=== PATIENT | female | born 1950 | race Caucasian/White ===

== ENCOUNTER 2020-10-05 15:24 | Inpatient (IN) ==
--- NOTE | 2020-10-05 15:27 | Emergency Department Note ---
Impression & Plan Closed fracture of left hip, Fall ED Provider Note NAME: BETHANY PAIZ AGE: 70 SEX: F : 1950 ARRIVES VIA: Ambulance INFORMANT: Patient, ED PROVIDER(S): Donte Padron MD Chief Complaint: Fall, hip pain HPI: Patient does present with fall and hip pain. The patient states that she was walking with her son. The Patient is currently visiting from [place]. The patient denies any fevers, chills, chest pains or shortness of breath. Patient denies known Covid contacts and no medical history does not take any medications. The patient did have a slip trip and fell to her left side. The patient did have immediate pain and was unable to ambulate. The patient was brought in by ambulance. No medications given prior to arrival. The patient does complain of pain with movement or with palpation. The patient does describe it as sharp. It is located within the left groin and left hip. The patient denies any headache. The patient did not strike her head or neck. The patient had no LOC. The patient does not complain of any head, neck, chest, abdomen, back, upper extremity or right lower extremity pain. She does not take any blood thinning medications. ROS: See HPI for pertinent positives and negatives. A total of 10 systems were reviewed and otherwise negative. Past medical history: See below Surgical history: See below Social history: See below Physical Exam: GENERAL: Wearing glasses and a mask, mildly uncomfortable in appearance. EYE EXAM: Normal conjunctiva. PERRL, no anisocoria and EOM's grossly intact w/o pain. NECK: Supple, no nuchal rigidity, no adenopathy, non-tender. No signs of meningismus. No midline C-spine TTP. Chest: No TTP, crepitus or flail chest. LUNGS: Clear to auscultation. Normal chest wall mechanics. HEART: NSR, no MRG. ABDOMEN: Abdomen soft, non-tender, normo-active bowel sounds, no masses, no rebound or guarding. BACK: No CVA TTP. SKIN: No rashes and no bruising. UPPER EXTREMITIES: Upper extremities are grossly normal. No TTP or obvious deformity. LOWER EXTREMITIES: Left lower extremity held in slight flexion, pain with extension, pain over left hip and groin area, good DP pulse, neurovascular intact distally, compartments are soft. NEURO EXAM: A&O x3, cranial nerves II-XII grossly intact, normal speech. Moves all 4 extremities without issue with exception of left lower extremity secondary to pain. Differential diagnoses: Fracture, subluxation, dislocation, contusion, ligamentous injury, neurovascular, compartment syndrome, rhabdomyolysis, as well as other pathologies. Course: Patient was seen and evaluated the bedside. Full history physical exam was performed. 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 No prior EKGs for comparison. 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 COMPARISON: None TECHNIQUE: Portable AP view of the chest FINDINGS: Cardiomediastinal and hilar silhouettes are within normal limits. No pneumothorax, pleural effusion, airspace consolidation or overt pulmonary edema. Bones of the chest appear grossly intact. IMPRESSION: No acute process. ACT 112: Negative or not required by law. The above report was generated using voice recognition software. It may contain grammatical, syntax or spelling errors. Electronically signed by: Minh Stoddard M.D. 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 There is mild cortical irregularity with linear lucency involving the neck of the left femur. No displacement or angulation. No dislocation or avascular necrosis. IMPRESSION: Acute nondisplaced transcervical fracture of the left femur. ACT 112: Negative or not required by law. The above report was generated using voice recognition software. It may contain grammatical, syntax or spelling errors. Electronically signed by: Minh Stoddard M.D. 10/05/2020 4:51 PM Dictated: 10/05/201648 Transcribed: 10/05/201648 Cardiac monitoring: An order was placed for continuous cardiac monitoring. The monitor shows a rate of 86 with sinus rhythm. MDM: Patient did present with concern for fall and hip pain. Blood work is obtained along with pain medication as well as a pelvis and hip x-ray. Patient does have an impacted left femoral neck fracture. Nondisplaced. I did convey these findings to the patient the patient's family were at the bedside. I did speak with the on-call orthopedist Dr. Ashlie MD. He stated the patient would require surgical pinning. I did ask the patient about her last p.o. status she last ate around 1 or 2 PM. Unavailable to have procedure this evening but it is a closed injury. I did speak the on-call hospitalist Dr. Estefania paniagua MD. Patient was admitted to the medicine service with an orthopedic consult. Patient's blood work was fairly unremarkable with normal kidney function. Urinalysis does not show any evidence of infection. Rapid Covid negative. Past Med/Surg History Medical History Bulging disc Surgical History No pertinent past surgical history Social History (Updated 10/05/20 @ 15:44 by Donte Padron MD) Smoking Status: Never smoker Hx Alcohol Use: No Hx Substance Use: No Feels Safe at Home: Yes Allergies Allergies Allergy/AdvReac Type Severity Reaction Status Date / Time No Known Allergies Allergy Verified 10/05/20 17:18 Home Meds Home Medications Medication Instructions Recorded Confirmed No Known Home Medications 10/05/20 10/05/20 Results & Data (ED) Vital Signs Vital Signs - 24 hr 10/05/20 15:51 10/05/20 16:14 10/05/20 17:06 Temperature 36.9 C Temperature Source Oral Pulse Rate 99 H Pulse Rate [Apical] 86 Respiratory Rate 20 18 Blood Pressure 181/91 H Blood Pressure [Left Arm] 135/93 Blood Pressure Mean 121 Blood Pressure Mean [Left Arm] 107 Pulse Oximetry 99 99 97 Oxygen Delivery Method Room Air Room Air Room Air Sepsis Recent Fever Within 48 Hours No Sepsis New/Unexplained Change in Mental Status No Sepsis Action Taken by Nursing No Action Required Home Medications Current Medication List: was personally reviewed by me Additional Comments: No current at home medications. Laboratory Data Result diagrams: 10/05/20 16:12 10/05/20 16:12 Lab Results 10/05/20 10/05/20 10/05/20 Range/Units 16:12 16:12 16:12 WBC 6.33 (4.8-10.8) K/uL RBC 5.49 H (4.2-5.4) M/uL Hgb 15.3 (12.0-16.0) g/dL Hct 46.2 (37-47) % MCV 84.2 (80-100) fL MCH 27.9 (25-34) pg MCHC 33.1 (32-36) g/dL RDW Std Deviation 39.7 (36.4-46.3) fL RDW Coeff of Magali 13.0 (11.5-14.5) % Plt Count 160 (130-400) K/uL MPV 11.9 H (7.4-10.4) fL Immature Gran % (Auto) 0.3 % Neut % (Auto) 70.3 % Lymph % (Auto) 23.5 % [place] % (Auto) 5.2 % Eos % (Auto) 0.5 % Baso % (Auto) 0.2 % Neut # (Auto) 4.45 (1.4-6.5) K/uL Lymph # (Auto) 1.49 (1.2-3.4) K/uL [place] # (Auto) 0.33 (0.11-0.59) K/uL Eos # (Auto) 0.03 (0-0.5) K/uL Baso # (Auto) 0.01 (0-0.2) K/uL Immature Gran # (Auto) 0.02 (0.00-0.02) K/uL PT 10.5 (9.0-12.0) Seconds INR 1.0 (0.9-1.1) APTT 28.4 (21.0-31.0) Seconds PTT Ratio 1.0 Sodium 142 (136-145) mmol/L Potassium 3.4 L (3.5-5.1) mmol/L Chloride 106 (98-107) mmol/L Carbon Dioxide 30 (21-32) mmol/L Anion Gap 6.0 (3-11) BUN 18 (7-18) mg/dl Creatinine 0.67 (0.6-1.2) mg/dl Est Cr Clr Drug Dosing 72.3 ml/min Est GFR ( Amer) 104.7 Est GFR (Non-Af Amer) 90.3 BUN/Creatinine Ratio 27.5 H (10-20) Glucose 105 H (70-99) mg/dl Calcium 8.9 (8.5-10.1) mg/dl Urine Color Urine Appearance (Clear) Urine pH (4.5-7.5) Ur Specific [place] (1.000-1.030) Urine Protein (Negative) Urine Glucose (UA) (Negative) Urine Ketones (Negative) Urine Blood (Negative) Urine Nitrite (Negative) Urine Bilirubin (Negative) Urine Urobilinogen (Negative) Ur Leukocyte Esterase (Negative) Urine WBC (Auto) (0-5) /hpf Urine RBC (Auto) (0-4) /hpf U Hyaline Cast (Auto) (0-5) /lpf U Epithel Cells (Auto) (0-5) /lpf Urine Bacteria (Auto) (Negative) Blood Type Antibody Screen 10/05/20 10/05/20 10/05/20 Range/Units 16:30 16:58 17:29 WBC (4.8-10.8) K/uL RBC (4.2-5.4) M/uL Hgb (12.0-16.0) g/dL Hct (37-47) % MCV (80-100) fL MCH (25-34) pg MCHC (32-36) g/dL RDW Std Deviation (36.4-46.3) fL RDW Coeff of Magali (11.5-14.5) % Plt Count (130-400) K/uL MPV (7.4-10.4) fL Immature Gran % (Auto) % Neut % (Auto) % Lymph % (Auto) % [place] % (Auto) % Eos % (Auto) % Baso % (Auto) % Neut # (Auto) (1.4-6.5) K/uL Lymph # (Auto) (1.2-3.4) K/uL [place] # (Auto) (0.11-0.59) K/uL Eos # (Auto) (0-0.5) K/uL Baso # (Auto) (0-0.2) K/uL Immature Gran # (Auto) (0.00-0.02) K/uL PT (9.0-12.0) Seconds INR (0.9-1.1) APTT (21.0-31.0) Seconds PTT Ratio Sodium (136-145) mmol/L Potassium (3.5-5.1) mmol/L Chloride (98-107) mmol/L Carbon Dioxide (21-32) mmol/L Anion Gap (3-11) BUN (7-18) mg/dl Creatinine (0.6-1.2) mg/dl Est Cr Clr Drug Dosing ml/min Est GFR ( Amer) Est GFR (Non-Af Amer) BUN/Creatinine Ratio (10-20) Glucose (70-99) mg/dl Calcium (8.5-10.1) mg/dl Urine Color Yellow Urine Appearance Clear (Clear) Urine pH 8.0 H (4.5-7.5) Ur Specific [place] 1.008 (1.000-1.030) Urine Protein Negative (Negative) Urine Glucose (UA) Negative (Negative) Urine Ketones Negative (Negative) Urine Blood Negative (Negative) Urine Nitrite Negative (Negative) Urine Bilirubin Negative (Negative) Urine Urobilinogen Negative (Negative) Ur Leukocyte Esterase Trace H (Negative) Urine WBC (Auto) 1-5 (0-5) /hpf Urine RBC (Auto) 0-4 (0-4) /hpf U Hyaline Cast (Auto) 0 (0-5) /lpf U Epithel Cells (Auto) 0-5 (0-5) /lpf Urine Bacteria (Auto) Negative (Negative) Blood Type Cancelled A Positive Antibody Screen Cancelled NEGATIVE Administered Medications Morphine Sulfate (Morphine Sulfate 2 Mg/Ml Carp) 2 mg IV Q1H PRN PRN Reason: Moderate Pain (Rating 3,4,5,6) Stop: 10/19/20 15:40 Last Admin: 10/05/20 16:13 Dose: 2 mg Documented by: [id number] Discharge Plan Visit Data Chief Complaint: Fall Stated Complaint: FALL, L HIP & GROIN PAIN ED Provider: Donte Padron Discharge Problem: Closed fracture of left hip, Fall Forms Stand Alone Forms: [employer] Prescriptions Prescriptions: No Action No Known Home Medications RF: 0 Discharge Problem: Closed fracture of left hip Qualifiers: Encounter type: initial encounter Qualified Code(s): S72.002A - Fracture of unspecified part of neck of left femur, initial encounter for closed fracture Fall Qualifiers: Encounter type: initial encounter Qualified Code(s): W19.XXXA - Unspecified fall, initial encounter
[2020-10-05] MEDS ORDERED: MoRPHine SULFATE 2 MG/ML CARP IV PRN (15:41)
[2020-10-05 16:30] LABS: Basophils # (auto) 0.01 K/uL (0-0.2); Basophils % (auto) 0.2 %; Eosinophils # (auto) 0.03 K/uL (0-0.5); Eosinophils % (auto) 0.5 %; Hematocrit (blood only) 46.2 % (37-47); Hemoglobin 15.3 g/dL (12.0-16.0); Immature Granulocytes # (auto) 0.02 K/uL (0.00-0.02); Immature Granulocytes % (auto) 0.3 %; Lymphocytes # (auto) 1.49 K/uL (1.2-3.4); Lymphocytes % (auto) 23.5 %; Mean Corpuscular Hemoglobin 27.9 pg (25-34); Mean Corpuscular Hgb Conc 33.1 g/dL (32-36); Mean Corpuscular Volume 84.2 fL (80-100); Mean Platelet Volume 11.9 fL (7.4-10.4); Monocytes # (auto) 0.33 K/uL (0.11-0.59); Monocytes % (auto) 5.2 %; Neutrophils # (auto) 4.45 K/uL (1.4-6.5); Neutrophils % (auto) 70.3 %; Platelet Count 160 K/uL (130-400); RDW Standard Deviation 39.7 fL (36.4-46.3); Red Blood Count 5.49 M/uL (4.2-5.4); White Blood Count 6.33 K/uL (4.8-10.8)
[2020-10-05 16:45] LABS: BUN Creatinine Ratio 27.5 (10-20); Calcium 8.9 mg/dl (8.5-10.1); Creatinine Clr Calc Pharmacy 72.3 ml/min; Est GFR (African American) 104.7; Est GFR (Non-African American) 90.3; Partial Thromboplastin Time 28.4 Seconds (21.0-31.0); Potassium 3.4 mmol/L (3.5-5.1); Prothrombin Time 10.5 Seconds (9.0-12.0)
[2020-10-05] MEDS ORDERED: MoRPHine SULFATE 4 MG/ML 1 ML CARP\\VIAL IV PRN (16:52)
--- NOTE | 2020-10-05 16:53 | XRay Report ---
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 There is mild cortical irregularity with linear lucency involving the neck of the left femur. No displacement or angulation. No dislocation or avasc ular necrosis. IMPRESSION: Acute nondisplaced transcervical fracture of the left femur. ACT 112: Negative or not required by law. The above report was generated using voice recognition software. It may contain grammatical, syntax o r spelling errors. Electronically signed by: Minh Stoddard M.D. 10/05/2020 4:51 PM
[2020-10-05 17:09] LABS: Appearance Urine Clear (Clear); Bacteria Urine Automated Negative (Negative); Bilirubin Urine Negative (Negative); Blood Urine Negative (Negative); Cast Urine Automated 0 /lpf (0-5); Color Urine Yellow; Epithelial Cell Urine Auto 0-5 /lpf (0-5); Glucose Urine UA Negative (Negative); Ketones Urine Negative (Negative); Leukocyte Esterase Urine Trace (Negative); Nitrite Urine Negative (Negative); Protein Urine Negative (Negative); RBC Urine Automated 0-4 /hpf (0-4); Specific Gravity Urine 1.008 (1.000-1.030); Urobilinogen Urine Negative (Negative)
--- NOTE | 2020-10-05 17:30 | XRay Report ---
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 COMPARISON: None TECHNIQUE: Portable AP view of the chest FINDINGS: Cardiomediastinal and hilar silhouettes are within normal limits. No pneumothorax, pleural effusion, airspace consolidation or overt pulmonary edema. Bones of the chest appear grossly intact. IMPRESSION: No acute process. ACT 112: Negative or not required by law. The above report was generated using voice recognition software. It may contain grammatical, syntax o r spelling errors. Electronically signed by: Minh Stoddard M.D. 10/05/2020 5:29 PM
--- NOTE | 2020-10-05 18:55 | History & Physical Report ---
Date of Service October 05, 2020 Assessment & Plan (1) Closed fracture of left hip: Admit geriatric hip protocol to med surg On Xray - Acute nondisplaced transcervical fracture of the left femur. Dr. Dailey from orthopedics consulted NPO at midnight for intervention in the morning NSS @ 100 ml/hr Patient is overall fairly comfortable, has not required much pain medication - will give morphine 2 mg q2h Ms. Bhagat does not have any cardiac history except for the unknown arrhythmia she was told she had in the past for which she has not required any treatment. Her CXR was clear. EKG with SR with PVCs. Hypokalemia replaced. Repeat labs am. Barring any changes on labs in the morning requiring intervention patient is optimized for surgery. RCRI is 3.9% (2) Fall: Mechanical (3) PVC (premature ventricular contraction): Patient reports history of arrhythmia though she does not know what type. She was told by her doctor she did not need to take medicine for it and that it was not a problem. On the monitor in the ED she did have intermittent PVCs. She is not having any symptoms (4) Hypokalemia: Potassium 3.4 - will replace with 40 mEq (5) DVT prophylaxis: SCDs History of Present Illness Primary Care Provider: NO PCP Ms. Bhagat presents today with a hip fracture after tripping on the sidewalk while accompanied with her son. She has been visiting from [place] since March and has been unable to travel home due to COVID restrictions. She did not hit her head when she fell or lose consciousness. Her pain is well controlled at present and she only required 2 mg of morphine in the ED. 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 Allergies Allergy/AdvReac Type Severity Reaction Status Date / Time No Known Allergies Allergy Verified 10/05/20 17:18 Home Medications Medication Instructions Recorded Confirmed Type No Known Home Medications 10/05/20 10/05/20 History Past Med/Surg History Medical History Bulging disc Surgical History No pertinent past surgical history Social History Smoking Status: Never smoker Hx Alcohol Use: Yes Alcohol type: wine Hx Substance Use: No Preferred Language: Portuguese Communication Ability: Effective Billiard Table Repairer Required: No Beliefs That Will Affect Care: None marital status: Single Current Living Situation: Family Other Information That Helps Us Care for You: No Feels Safe at Home: Yes Safety Concerns: Feels Safe At This Time Assistive Devices: Walker Review of Systems Constitutional: no fever, no chills and no body aches Respiratory: no cough and no dyspnea Cardiovascular: no chest pain, no palpitations and no lightheadedness Gastrointestinal: no abdominal pain, no nausea, no vomiting and no diarrhea/loose stools Genitourinary: no dysuria and no urinary hesitancy Musculoskeletal: as per Subjective / HPI Integumentary: no rash Neurologic: + falls; no dizziness Physical Exam Physical Exam: General: no distress Eyes: normal inspection, PERLL Respiratory: chest non tender, clear to auscultation, normal breath sounds, no respiratory distress, no accessory muscle use Cardiac: irregular rate and rhythm, no rub or gallop, no murmur, no edema, no jvd GI/: active bowel sounds, no abd pain or tenderness, soft, non distended Extremities: normal range of motion, normal strength, non tender Neuro:oriented x 3, moves all extremities except left leg due to fracture Psych: alert, normal mood and affect Skin: normal color, dry Results & Data Results & Data ([facility]) Vital Signs (Past 12 Hours) Vital Signs Temp Pulse Pulse Resp BP BP Pulse Ox 10/05/20 17:06 86 18 135/93 97 10/05/20 16:14 99 10/05/20 15:51 36.9 C 99 H 20 181/91 H 99 Supervising Physician Co-Signing Physician Notes I personally saw and examined the patient. I verified all gomez points and agree with TOMAS Sigala with the following exceptions and/or additions: 70 year old female from [place] to living in the [place] with her son currently. No significant past medical history. A/P NPO after midnight for ortho consult in AM and likely operation tomorrow. Should have follow up DEXA scan outpatient. PG Care Time/CCT Total # of Minutes Spent Total Time Spent with Patient: Total time spent is greater than 50% in coordination of care (as documented) at patient's floor/unit and/or counseling patient: Coding Level of Care Code 62410 Initial Inpt Care Lvl 3 Diagnoses Closed fracture of left hip S72.002A Encounter type: initial encounter Fall W19.XXXA Encounter type: initial encounter PVC (premature ventricular contraction) I49.3 Hypokalemia E87.6 DVT prophylaxis Z29.9 (1) Fall Encounter type: initial encounter Qualified Code(s): W19.XXXA - Unspecified fall, initial encounter (2) Closed fracture of left hip Encounter type: initial encounter Qualified Code(s): S72.002A - Fracture of unspecified part of neck of left femur, initial encounter for closed fracture
[2020-10-05] MEDS ORDERED: MAGNESIUM HYDROXIDE SUSP 30 ML UDC PO PRN (20:15)
[2020-10-05] MEDS ORDERED: POTASSIUM CHLORIDE CRTAB 20 MEQ TABCR PO STA (20:15)
[2020-10-05] MEDS ORDERED: bisacodyL 10 MG SUPP PR PRN (20:15)
[2020-10-05] MEDS ORDERED: ONDANSETRON INJ 2 MG/ML 2 ML VIAL IV PRN (20:15)
[2020-10-05] MEDS ORDERED: NALOXONE HCL 0.4 MG/1 ML VIAL/CARP IV PRN (20:15)
[2020-10-05] MEDS: MoRPHine SULFATE 2 MG/ML CARP IV PRN (20:25)
[2020-10-05] MEDS: LACTATED RINGER'S 1,000 ML IV SCH (20:29)
[2020-10-05] MEDS ORDERED: ceFAZolin 1000MG 1,000 MG/7.5 ML SYR IV ONE (22:05)
[2020-10-05] MEDS: DOCUSATE SODIUM/SENNA 50/8.6MG TAB PO SCH (22:23)
[2020-10-06] MEDS: MoRPHine SULFATE 2 MG/ML CARP IV PRN ×2 (02:28→06:06)
[2020-10-06] MEDS: LACTATED RINGER'S 1,000 ML IV SCH ×3 (05:38→23:44)
[2020-10-06 06:21] LABS: Hematocrit (blood only) 43.4 % (37-47); Hemoglobin 14.3 g/dL (12.0-16.0); Mean Corpuscular Hgb Conc 32.9 g/dL (32-36); Mean Corpuscular Volume 85.1 fL (80-100); Mean Platelet Volume 12.4 fL (7.4-10.4); Platelet Count 158 K/uL (130-400); RDW Coefficient of Variation 13.1 % (11.5-14.5); White Blood Count 7.51 K/uL (4.8-10.8)
[2020-10-06 07:02] LABS: BUN Creatinine Ratio 18.7 (10-20); Calcium 8.4 mg/dl (8.5-10.1); Creatinine Clr Calc Pharmacy 104.7 ml/min; Est GFR (African American) 115.3; Est GFR (Non-African American) 99.4; Magnesium 2.2 mg/dl (1.8-2.4); Potassium 3.8 mmol/L (3.5-5.1)
--- NOTE | 2020-10-06 08:30 | Orthopedic Consultation ---
Date of Consultation October 06, 2020 Assessment & Plan (1) Closed fracture of left hip: The patient is a 70 year old female who sustained a left hip fracture from a ground level fall. The patients treatment options of conservative versus surgical intervention were discussed. Since the patient was an ambulatory prior to the injury and to avoid the risks of bed sores, pulmonary complications, and to give the best chance for ambulation, I recommended surgery. The patient and son understands the risks of surgery, which include but are not limited to: bleeding, infection, re-operation, damage to nerves and arteries, continued pain, failure of the hardware, mal-union, non-union, DVT, and . The patient and son understands all of these instructions and explanations, all of their questions have been satisfactorily addressed. The patient has elected to proceed with surgery and the informed consent was signed for CRPP. Patient is NPO. Placed on the add-on schedule for later today. Will proceed with surgery when medically stable. The patient will be admitted to the Hospitalist service. Currently NWB. Present on Admission?: Yes History of Present Illness Reason for Consultation: L hip fracture Requesting Physician: Yvonne Dailey MD Attending Physician: Logan Vázquez DO History of Present Illness 70 year old female visiting from [place] who has not been able to return due to COVID-19 pandemic sustained a ground level fall tripping on the sidewalk, 10/05/2020. She was brought to the ED. X-rays were obtained. She was admitted to the hospitalist service and I was consulted for the hip fracture. Allergies Allergy/AdvReac Type Severity Reaction Status Date / Time No Known Allergies Allergy Verified 10/05/20 17:18 Home Medications Medication Instructions Recorded Confirmed Type No Known Home Medications 10/05/20 10/05/20 History Patient History Medical History Bulging disc Surgical History No pertinent past surgical history Social History Smoking Status: Never smoker Hx Alcohol Use: Yes Alcohol type: wine Hx Substance Use: No Preferred Language: Syriac Communication Ability: Effective Shift Mgr Required: No Beliefs That Will Affect Care: None Current Living Situation: Family Other Information That Helps Us Care for You: No Feels Safe at Home: Yes Safety Concerns: Feels Safe At This Time Assistive Devices: Glasses Review of Systems Review of Systems: All systems reviewed & are unremarkable except as noted in HPI & below Physical Exam Physical Exam: LLE: Neurovascularly intact. calf soft and non-tender. Pain in groin with log roll hip. Results & Data ([facility]) Vital Signs (Past 12 Hours) Vital Signs Temp Pulse Resp BP Pulse Ox 10/06/20 07:53 37.2 C 78 16 101/55 L 95 10/05/20 23:49 37.1 C 83 15 147/81 H 96 Laboratory Results 10/06/20 10/06/20 10/06/20 Range/Units 05:34 05:34 05:34 WBC 7.51 (4.8-10.8) K/uL RBC 5.10 (4.2-5.4) M/uL Hgb 14.3 (12.0-16.0) g/dL Hct 43.4 (37-47) % MCV 85.1 (80-100) fL MCH 28.0 (25-34) pg MCHC 32.9 (32-36) g/dL RDW Std Deviation 41.0 (36.4-46.3) fL RDW Coeff of Magali 13.1 (11.5-14.5) % Plt Count 158 (130-400) K/uL MPV 12.4 H (7.4-10.4) fL Immature Gran % (Auto) % Neut % (Auto) % Lymph % (Auto) % [place] % (Auto) % Eos % (Auto) % Baso % (Auto) % Neut # (Auto) (1.4-6.5) K/uL Lymph # (Auto) (1.2-3.4) K/uL [place] # (Auto) (0.11-0.59) K/uL Eos # (Auto) (0-0.5) K/uL Baso # (Auto) (0-0.2) K/uL Immature Gran # (Auto) (0.00-0.02) K/uL PT (9.0-12.0) Seconds INR (0.9-1.1) APTT (21.0-31.0) Seconds PTT Ratio Sodium 139 (136-145) mmol/L Potassium 3.8 (3.5-5.1) mmol/L Chloride 109 H (98-107) mmol/L Carbon Dioxide 27 (21-32) mmol/L Anion Gap 3.0 (3-11) BUN 9 D (7-18) mg/dl Creatinine 0.50 L (0.6-1.2) mg/dl Est Cr Clr Drug Dosing 104.7 ml/min Est GFR ( Amer) 115.3 Est GFR (Non-Af Amer) 99.4 BUN/Creatinine Ratio 18.7 (10-20) Glucose 113 H (70-99) mg/dl Calcium 8.4 L (8.5-10.1) mg/dl Magnesium 2.2 (1.8-2.4) mg/dl Urine Color Urine Appearance (Clear) Urine pH (4.5-7.5) Ur Specific Martin (1.000-1.030) Urine Protein (Negative) Urine Glucose (UA) (Negative) Urine Ketones (Negative) Urine Blood (Negative) Urine Nitrite (Negative) Urine Bilirubin (Negative) Urine Urobilinogen (Negative) Ur Leukocyte Esterase (Negative) Urine WBC (Auto) (0-5) /hpf Urine RBC (Auto) (0-4) /hpf U Hyaline Cast (Auto) (0-5) /lpf U Epithel Cells (Auto) (0-5) /lpf Urine Bacteria (Auto) (Negative) Hepatitis C Ab Screen Pending SARS-CoV-2 Ag (Rapid) Blood Type Antibody Screen 10/06/20 10/05/20 10/05/20 Range/Units 05:34 17:29 17:12 WBC (4.8-10.8) K/uL RBC (4.2-5.4) M/uL Hgb (12.0-16.0) g/dL Hct (37-47) % MCV (80-100) fL MCH (25-34) pg MCHC (32-36) g/dL RDW Std Deviation (36.4-46.3) fL RDW Coeff of Magali (11.5-14.5) % Plt Count (130-400) K/uL MPV (7.4-10.4) fL Immature Gran % (Auto) % Neut % (Auto) % Lymph % (Auto) % [place] % (Auto) % Eos % (Auto) % Baso % (Auto) % Neut # (Auto) (1.4-6.5) K/uL Lymph # (Auto) (1.2-3.4) K/uL [place] # (Auto) (0.11-0.59) K/uL Eos # (Auto) (0-0.5) K/uL Baso # (Auto) (0-0.2) K/uL Immature Gran # (Auto) (0.00-0.02) K/uL PT (9.0-12.0) Seconds INR (0.9-1.1) APTT (21.0-31.0) Seconds PTT Ratio Sodium (136-145) mmol/L Potassium (3.5-5.1) mmol/L Chloride (98-107) mmol/L Carbon Dioxide (21-32) mmol/L Anion Gap (3-11) BUN (7-18) mg/dl Creatinine (0.6-1.2) mg/dl Est Cr Clr Drug Dosing ml/min Est GFR ( Amer) Est GFR (Non-Af Amer) BUN/Creatinine Ratio (10-20) Glucose (70-99) mg/dl Calcium (8.5-10.1) mg/dl Magnesium (1.8-2.4) mg/dl Urine Color Urine Appearance (Clear) Urine pH (4.5-7.5) Ur Specific Martin (1.000-1.030) Urine Protein (Negative) Urine Glucose (UA) (Negative) Urine Ketones (Negative) Urine Blood (Negative) Urine Nitrite (Negative) Urine Bilirubin (Negative) Urine Urobilinogen (Negative) Ur Leukocyte Esterase (Negative) Urine WBC (Auto) (0-5) /hpf Urine RBC (Auto) (0-4) /hpf U Hyaline Cast (Auto) (0-5) /lpf U Epithel Cells (Auto) (0-5) /lpf Urine Bacteria (Auto) (Negative) Hepatitis C Ab Screen SARS-CoV-2 Ag (Rapid) Pending Blood Type Cancelled A Positive Antibody Screen Cancelled NEGATIVE 10/05/20 10/05/20 10/05/20 Range/Units 16:58 16:30 16:12 WBC (4.8-10.8) K/uL RBC (4.2-5.4) M/uL Hgb (12.0-16.0) g/dL Hct (37-47) % MCV (80-100) fL MCH (25-34) pg MCHC (32-36) g/dL RDW Std Deviation (36.4-46.3) fL RDW Coeff of Magali (11.5-14.5) % Plt Count (130-400) K/uL MPV (7.4-10.4) fL Immature Gran % (Auto) % Neut % (Auto) % Lymph % (Auto) % [place] % (Auto) % Eos % (Auto) % Baso % (Auto) % Neut # (Auto) (1.4-6.5) K/uL Lymph # (Auto) (1.2-3.4) K/uL [place] # (Auto) (0.11-0.59) K/uL Eos # (Auto) (0-0.5) K/uL Baso # (Auto) (0-0.2) K/uL Immature Gran # (Auto) (0.00-0.02) K/uL PT (9.0-12.0) Seconds INR (0.9-1.1) APTT (21.0-31.0) Seconds PTT Ratio Sodium 142 (136-145) mmol/L Potassium 3.4 L (3.5-5.1) mmol/L Chloride 106 (98-107) mmol/L Carbon Dioxide 30 (21-32) mmol/L Anion Gap 6.0 (3-11) BUN 18 (7-18) mg/dl Creatinine 0.67 (0.6-1.2) mg/dl Est Cr Clr Drug Dosing 72.3 ml/min Est GFR ( Amer) 104.7 Est GFR (Non-Af Amer) 90.3 BUN/Creatinine Ratio 27.5 H (10-20) Glucose 105 H (70-99) mg/dl Calcium 8.9 (8.5-10.1) mg/dl Magnesium (1.8-2.4) mg/dl Urine Color Yellow Urine Appearance Clear (Clear) Urine pH 8.0 H (4.5-7.5) Ur Specific Martin 1.008 (1.000-1.030) Urine Protein Negative (Negative) Urine Glucose (UA) Negative (Negative) Urine Ketones Negative (Negative) Urine Blood Negative (Negative) Urine Nitrite Negative (Negative) Urine Bilirubin Negative (Negative) Urine Urobilinogen Negative (Negative) Ur Leukocyte Esterase Trace H (Negative) Urine WBC (Auto) 1-5 (0-5) /hpf Urine RBC (Auto) 0-4 (0-4) /hpf U Hyaline Cast (Auto) 0 (0-5) /lpf U Epithel Cells (Auto) 0-5 (0-5) /lpf Urine Bacteria (Auto) Negative (Negative) Hepatitis C Ab Screen SARS-CoV-2 Ag (Rapid) Blood Type Cancelled Antibody Screen Cancelled 10/05/20 10/05/20 Range/Units 16:12 16:12 WBC 6.33 (4.8-10.8) K/uL RBC 5.49 H (4.2-5.4) M/uL Hgb 15.3 (12.0-16.0) g/dL Hct 46.2 (37-47) % MCV 84.2 (80-100) fL MCH 27.9 (25-34) pg MCHC 33.1 (32-36) g/dL RDW Std Deviation 39.7 (36.4-46.3) fL RDW Coeff of Magali 13.0 (11.5-14.5) % Plt Count 160 (130-400) K/uL MPV 11.9 H (7.4-10.4) fL Immature Gran % (Auto) 0.3 % Neut % (Auto) 70.3 % Lymph % (Auto) 23.5 % [place] % (Auto) 5.2 % Eos % (Auto) 0.5 % Baso % (Auto) 0.2 % Neut # (Auto) 4.45 (1.4-6.5) K/uL Lymph # (Auto) 1.49 (1.2-3.4) K/uL [place] # (Auto) 0.33 (0.11-0.59) K/uL Eos # (Auto) 0.03 (0-0.5) K/uL Baso # (Auto) 0.01 (0-0.2) K/uL Immature Gran # (Auto) 0.02 (0.00-0.02) K/uL PT 10.5 (9.0-12.0) Seconds INR 1.0 (0.9-1.1) APTT 28.4 (21.0-31.0) Seconds PTT Ratio 1.0 Sodium (136-145) mmol/L Potassium (3.5-5.1) mmol/L Chloride (98-107) mmol/L Carbon Dioxide (21-32) mmol/L Anion Gap (3-11) BUN (7-18) mg/dl Creatinine (0.6-1.2) mg/dl Est Cr Clr Drug Dosing ml/min Est GFR ( Amer) Est GFR (Non-Af Amer) BUN/Creatinine Ratio (10-20) Glucose (70-99) mg/dl Calcium (8.5-10.1) mg/dl Magnesium (1.8-2.4) mg/dl Urine Color Urine Appearance (Clear) Urine pH (4.5-7.5) Ur Specific Martin (1.000-1.030) Urine Protein (Negative) Urine Glucose (UA) (Negative) Urine Ketones (Negative) Urine Blood (Negative) Urine Nitrite (Negative) Urine Bilirubin (Negative) Urine Urobilinogen (Negative) Ur Leukocyte Esterase (Negative) Urine WBC (Auto) (0-5) /hpf Urine RBC (Auto) (0-4) /hpf U Hyaline Cast (Auto) (0-5) /lpf U Epithel Cells (Auto) (0-5) /lpf Urine Bacteria (Auto) (Negative) Hepatitis C Ab Screen SARS-CoV-2 Ag (Rapid) Blood Type Antibody Screen Diagnostic Findings I reviewed the AP pelvis and AP and lateral of the left hip which showed a non- displaced femoral neck fracture. (1) Closed fracture of left hip Encounter type: initial encounter Qualified Code(s): S72.002A - Fracture of unspecified part of neck of left femur, initial encounter for closed fracture
--- NOTE | 2020-10-06 08:58 | Electrocardiogram Report ---
Test Reason : Blood Pressure : / mmHG Vent. Rate : 081 BPM Atrial Rate : 081 BPM P-R Int : 156 ms QRS Dur : 086 ms QT Int : 420 ms P-R-T Axes : 087 -49 082 degrees QTc Int : 487 ms Poor data quality, interpretation may be adversely affected Sinus rhythm with occasional Premature ventricular complexes Left anterior fascicular block Abnormal ECG No previous ECGs available Confirmed by Rome Man ([id number]) on 10/06/2020 8:57:48 AM Referred By: REFERRED SELF Confirmed By:[place] Man
--- NOTE | 2020-10-06 09:51 | Anesthesiology Consultation ---
Date of Service October 06, 2020 Assessment & Plan (1) Encounter for pre-operative examination: Chart Review Chart Review: Acceptable Risk for Surgery and Patient NOT seen in Pre Admission Testing Consults Requested none History Surgery Operation Date: 10/06/20 11:00 Proposed Procedures p ORIF Hip Cannulated Screw(Left) - Reyes Lisa Dailey MD Height/Weight Height: 5 ft 5 in Weight: 68.5 kg Allergies Allergy/AdvReac Type Severity Reaction Status Date / Time No Known Allergies Allergy Verified 10/05/20 17:18 Medications Home Medications Medication Instructions Recorded Confirmed Last Taken No Known Home Medications 10/05/20 10/05/20 Unknown Active Medications Generic Name Dose Route Start Last Admin Trade Name Freq PRN Reason Stop Dose Admin Lactated Ringer's 1,000 mls @ 100 mls/hr 10/05/20 20:15 10/06/20 05:38 Lr IV 11/04/20 20:14 100 mls/hr .Q10H STAS Administration Morphine Sulfate 2 mg 10/05/20 20:15 10/06/20 06:06 Morphine Sulfate 2 Mg/Ml Carp IV 10/19/20 20:14 2 mg Q2H PRN Administration Pain Senna/Docusate Sodium 2 tab 10/05/20 21:00 10/05/20 22:23 Docusate Sodium/Senna 50/8.6mg Tab PO 11/04/20 20:59 2 tab HS STAS Administration NPO Date Last Intake of Fluids: 10/05/20 Time Last Intake of Fluids: 23:59 Date Last Intake of Solids: 10/05/20 Time Last Intake of Solids: 23:59 Past Medical History Medical History Bulging disc Past Surgical History Surgical History No pertinent past surgical history Social History Smoking Status: Never smoker Hx Alcohol Use: Yes Alcohol type: wine alcohol intake frequency: holidays/special occasions only Hx Substance Use: No Physical Exam Vital Signs Last Vital Signs Temp 37.2 C 10/06/20 07:53 Pulse 78 10/06/20 07:53 Resp 16 10/06/20 07:53 BP 101/55 L 10/06/20 07:53 Pulse Ox 95 10/06/20 07:53 Testing Laboratory Results 10/06/20 05:34 10/06/20 05:34 PT 10.5 Seconds (9.0-12.0) 10/05/20 16:12 INR 1.0 (0.9-1.1) 10/05/20 16:12 APTT 28.4 Seconds (21.0-31.0) 10/05/20 16:12 Urine Color Yellow 10/05/20 16:30 Urine Appearance Clear (Clear) 10/05/20 16:30 Urine pH 8.0 (4.5-7.5) H 10/05/20 16:30 Ur Specific [place] 1.008 (1.000-1.030) 10/05/20 16:30 Urine Protein Negative (Negative) 10/05/20 16:30 Urine Glucose (UA) Negative (Negative) 10/05/20 16:30 Urine Ketones Negative (Negative) 10/05/20 16:30 Urine Nitrite Negative (Negative) 10/05/20 16:30 Ur Leukocyte Esterase Trace (Negative) H 10/05/20 16:30 Urine WBC (Auto) 1-5 /hpf (0-5) 10/05/20 16:30 Urine RBC (Auto) 0-4 /hpf (0-4) 10/05/20 16:30 U Hyaline Cast (Auto) 0 /lpf (0-5) 10/05/20 16:30 U Epithel Cells (Auto) 0-5 /lpf (0-5) 10/05/20 16:30 Urine Bacteria (Auto) Negative (Negative) 10/05/20 16:30 Blood Type Cancelled 10/06/20 05:34 Antibody Screen Cancelled 10/06/20 05:34 Electrocardiogram Date: 10/05/20 Findings: + NSR @ (81) Sinus rhythm with occasional Premature ventricular complexes Left anterior fascicular block
[2020-10-06] MEDS ORDERED: PROPOFOL IV EMULSION 10 MG/ML 20 ML VIAL IV ONE (12:42)
[2020-10-06] MEDS ORDERED: LIDOCAINE HCL 2% 2 ML VIAL/AMP(20MG/ML) INFIL ONE (12:42)
[2020-10-06] MEDS ORDERED: DEXAMETHASONE SOD INJ 4 MG/ML VIAL ONE (12:42)
[2020-10-06] MEDS ORDERED: ONDANSETRON INJ 2 MG/ML 2 ML VIAL ONE (12:42)
[2020-10-06] MEDS ORDERED: fentaNYL citrate 100 MCG/2 ML VIAL ONE ×2 (12:43→14:08)
[2020-10-06] MEDS ORDERED: MIDAZOLAM HCL 1 MG/ML 2ML VIAL ONE (12:56)
[2020-10-06] MEDS ORDERED: BUPIVACAINE 0.5 % 5 MG/1 ML MPF 30ML VIAL ONE (13:00)
[2020-10-06] MEDS ORDERED: LIDOCAINE/EPINEPHRINE 1% 20 ML VIAL ONE (13:00)
[2020-10-06] MEDS ORDERED: EPINEPHrine INJ 1 MG/ML AMP ONE (13:01)
[2020-10-06] MEDS ORDERED: ONDANSETRON INJ 2 MG/ML 2 ML VIAL IV PRN (13:13)
[2020-10-06] MEDS ORDERED: HYDROmorphone INJ 2 MG/ML SYR/VIAL IV PRN (13:13)
[2020-10-06] MEDS ORDERED: ATROPINE SULFATE 0.1 MG/ML 10ML SYR IV PRN (13:13)
[2020-10-06] MEDS ORDERED: ePHEDrine sulfate 50 MG/ML AMP IV PRN (13:13)
[2020-10-06] MEDS ORDERED: ePHEDrine sulfate 50 MG/ML AMP ONE (14:08)
[2020-10-06] MEDS ORDERED: PHENYLEPHRINE 100MCG/ML 5ML SYR ONE (14:08)
[2020-10-06] MEDS ORDERED: ceFAZolin 1000MG 1,000 MG/7.5 ML SYR IV ONE ×2 (14:25→21:00)
--- NOTE | 2020-10-06 14:43 | Fluoroscopy Report ---
INTRAOPERATIVE RADIOGRAPHS CLINICAL HISTORY: Open reduction and internal fixation of the left hip. Fluoroscopy time: 48 seconds. FINDINGS: 2 spot fluoroscopic views of the left hip are correlated with radiographs dated 10/05/2020. Again seen is an impacted fracture of the subcapital left femur. 3 intertrochanteric cortical lag sc rews are in place. The orthopedic hardware appears intact. IMPRESSION: Intraoperative images from open reduction and internal fixation of a left femoral fractur e as above. Electronically signed by: Rylan Garcia M.D. 10/06/2020 2:41 PM
--- NOTE | 2020-10-06 14:49 | Post Operative Brief Note ---
Immediate Post Op Note v1 Date of Surgery October 06, 2020 Pre & Post Diagnosis Operation Date: 10/06/20 11:00 Pre-Op Diagnosis: Left hip fracture Post-Op Diagnosis: Left hip fracture I identified the patient and participated in the time-out.: Yes Procedure Operation Date: 10/06/20 11:00 Actual Procedures p Closed Reduction and Percutaneous Pinning of Left Hip Fracture(Left) - Reyes Dailey MD Surgeon Reyes Dailey MD Entry Level Project Coordinator Power Puckett PA-C (No fellow avail) Estimated Blood Loss 15 Findings Consistent with Post-Op Diagnosis Fluids 1200 cc Drains Loya Catheter (Loya catheter inserted by KATARINA Guerra without difficulty. Draining clear yellow urine. Anesthesia monitor urine output. ) Anesthesia Type General Complications none
--- NOTE | 2020-10-06 14:50 | Operative Report ---
Post Operative Report Pre & Post Diagnosis Operation Date: 10/06/20 11:00 Pre-Op Diagnosis: Left hip fracture Post-Op Diagnosis: Left hip fracture I identified the patient and participated in the time-out.: Yes Procedure Operation Date: 10/06/20 11:00 Actual Procedures p Closed Reduction and Percutaneous Pinning of Left Hip Fracture(Left) - Reyes Dailey MD Surgeon Reyes Dailey MD Trial Management Associate Power Puckett PA-C (No fellow avail) Estimated Blood Loss 15 Findings See Below Fluids 1200 cc Specimens n/a Drains Loya Anesthesia Type General Complications none Indications The patient is a 70 year old female who sustained a ground level fall resulting in a left hip fracture. Their treatment options of conservative versus surgical intervention were discussed. Since the patient was an ambulatory prior to their injury and to avoid the risks of bed sores, pulmonary complications, and to give them the best chance for ambulation, I recommended surgery. The patient and their family understands the risks of surgery, which include but are not limited to: bleeding, infection, re-operation, damage to nerves and arteries, continued pain, failure of the hardware, mal-union, non-union, DVT, and . The patient understands all of these instructions and explanations, all of their questions have been satisfactorily addressed. The patient has elected to proceed with surgery and the informed consent was signed. Description of Procedure Power Hopkins PA-C is assisting with positioning and closure due to fellow not available. IMPLANTS: 1) 7.3 MM CANNULATED SCREW, LONG THREADS 90 MM (SYNTHES). 2) 7.3 MM CANNULATED SCREW, SHORT THREADS 80 MM x 2 (SYNTHES). Description of Procedure The patient was taken to the Operating Room and placed in the supine position on the fracture table after general anesthesia was administered. A multidisciplinary time-out was performed identifying my initials on the left lower limb as the correct and operative limb. Prior to the incision being made, 1 g intravenous Ancef was given. Fluoroscopy was brought in to ensure adequate x-rays images could be obtained. No reduction was necessary as the femoral neck fracture was impacted and remained in its alignment with placement of the patient on the fracture table. Once this was confirmed with Fluro, the left lower extremity was prepped in the standard fashion. The trochanter was marked as was the planned incision. The incision was injected with a 50:50 mixture of 1% Lidocaine with epinephrine and 0.5% Marcaine plain for a total of 10cc. The planned incision was carried down through the Tensor Fascia Karen to expose the greater trochanter and the starting position. Using Fluro a starting guide wire was placed proximal to the lesser trochanter and centered along the femoral neck. Then 2 more guide pins were placed more proximal and parallel to the first pin, one anterior and one posterior. These were measured and the cannulated screws were placed in the standard fashion. The most distal and central screw was placed first and it was a 7.3 mm. All proximal screws were short threaded and the threads crossed the fracture line. Final x-rays were obtained showing anatomic alignment with 3 screws. The wounds were copiously irrigated. The Tensor Fascia Karen was closed with 0 Vicryl. The subcutaneous tissue was closed with 3-0 Vicryl. The skin was closed with ZipLine and shield. The incision was covered with 4x4s, Tegaderm. The patient was transfer to their hospital bed and taken to the PACU in stable condition. The sponge and needle counts were correct. Post-op Instructions: The patient was admitted back to the hospitalist service. The patient will be 25% PWB with a walker. DVT Prophylaxis with ASA 325 mg PO BID for 6 weeks. The patient will be seen by PT/OT. Their labs will be checked in the am. I attest to the content of the Intraoperative Record and any orders documented therein. Any exceptions are noted below.
--- NOTE | 2020-10-06 14:58 | Hospitalist Progress Note ---
Date of Service October 06, 2020 Assessment & Plan (1) Closed fracture of left hip: On Xray - Acute nondisplaced transcervical fracture of the left femur. Dr. Dailey from orthopedics consulted - patient went to the OR 10/06 for closed reduction and percutaneous pinning of the left hip fracture DVT proph per surgery PT/OT when ok with surgery (2) Fall: Mechanical (3) PVC (premature ventricular contraction): Patient reports history of arrhythmia though she does not know what type. She was told by her doctor she did not need to take medicine for it and that it was not a problem. On the monitor in the ED she did have intermittent PVCs. She is not having any symptoms (4) Hypokalemia: replaced (5) DVT prophylaxis: SCDs Admission and Anticipated Discharge Date Admission Date: October 05, 2020 Subjective Ms. Bhagat was pre-surgery this morning when I saw her. She was having some pain in her hip but otherwise had no complaints Review of Systems Constitutional: no fever, no chills and no body aches Respiratory: no cough and no dyspnea Cardiovascular: no chest pain and no palpitations Gastrointestinal: no abdominal pain, no nausea, no vomiting and no diarrhea/loose stools Genitourinary: no dysuria and no urinary hesitancy Musculoskeletal: + joint pain; no back pain Integumentary: no rash Physical Exam Physical Exam: General: no distress Eyes: normal inspection, PERLL Respiratory: chest non tender, clear to auscultation, normal breath sounds, no respiratory distress, no accessory muscle use Cardiac: regular rate and rhythm, no rub or gallop, no murmur, no edema, no jvd GI/: active bowel sounds, no abd pain or tenderness, soft, non distended Extremities: normal range of motion, normal strength, non tender Neuro/Psych: alert and oriented x 3, normal mood and affect Skin: normal color, dry Results & Data Results & Data ([facility]) Vital Signs (Past 12 Hours) Vital Signs Temp Pulse Resp BP Pulse Ox 10/06/20 07:53 37.2 C 78 16 101/55 L 95 PG Care Time/CCT Total # of Minutes Spent Total Time Spent with Patient: Total time spent is greater than 50% in coordination of care (as documented) at patient's floor/unit and/or counseling patient: Coding Level of Care Code 72868 Subseq Hosp Care Lvl 2 Diagnoses Closed fracture of left hip S72.002A Encounter type: initial encounter Fall W19.XXXA Encounter type: initial encounter PVC (premature ventricular contraction) I49.3 Hypokalemia E87.6 DVT prophylaxis Z29.9 (1) Closed fracture of left hip Encounter type: initial encounter Qualified Code(s): S72.002A - Fracture of unspecified part of neck of left femur, initial encounter for closed fracture (2) Fall Encounter type: initial encounter Qualified Code(s): W19.XXXA - Unspecified fall, initial encounter
[2020-10-06] MEDS: fentaNYL citrate 100 MCG/2 ML VIAL IV PRN ×2 (15:15→15:20)
--- NOTE | 2020-10-06 15:29 | Anesthesiology Progress Note ---
Date of Service October 06, 2020 Anesthesia Post Procedure Vital Signs Vital Signs: Temp Pulse Pulse Pulse Resp BP BP 10/06/20 15:25 93 H 20 149/85 H 10/06/20 15:15 96 H 19 143/86 H 10/06/20 15:05 97 H 24 143/82 H 10/06/20 14:58 36.3 C L 103 H 12 147/61 H 10/06/20 07:53 37.2 C 78 16 101/55 L 10/05/20 23:49 37.1 C 83 15 147/81 H 10/05/20 20:15 37.3 C 83 18 135/71 10/05/20 19:57 82 22 134/72 10/05/20 19:00 82 22 134/72 10/05/20 17:06 86 18 135/93 10/05/20 16:14 10/05/20 15:51 36.9 C 99 H 20 181/91 H Pulse Ox 10/06/20 15:25 98 10/06/20 15:15 99 10/06/20 15:05 97 10/06/20 14:58 98 10/06/20 07:53 95 10/05/20 23:49 96 10/05/20 20:15 95 10/05/20 19:57 97 10/05/20 19:00 97 10/05/20 17:06 97 10/05/20 16:14 99 10/05/20 15:51 99 Pain Intensity Left Hip: Pain Intensity: 6 Transfer of Care Handoff Completed per policy Notes Mental Status: alert / awake / arousable and participated in evaluation Patient Amnestic to Procedure: Yes Nausea / Vomiting: adequately controlled Pain: adequately controlled Airway Patency, RR, SpO2: stable & adequate BP & HR: stable & adequate Hydration State: stable & adequate Anesthetic Complications: no major complications apparent and Pt Satisfied with anesthetic care
[2020-10-06] MEDS ORDERED: HYDROmorphone INJ 0.5 MG/0.5 ML SYR IV PRN (16:05)
--- NOTE | 2020-10-06 19:11 | Operative Report ---
Post Operative Report Pre & Post Diagnosis Operation Date: 10/06/20 11:00 Pre-Op Diagnosis: Left hip fracture Post-Op Diagnosis: Left hip fracture I identified the patient and participated in the time-out.: Yes Procedure Operation Date: 10/06/20 11:00 Actual Procedures p Closed Reduction and Percutaneous Pinning of Left Hip Fracture(Left) - Reyesmoiz Dailey MD Surgeon D Ashlie KEENE P[employer] Power Hopkins PA-C (No fellow avail) Estimated Blood Loss 15 Findings Consistent with Post-Op Diagnosis Specimens none Drains none Complications none Disposition Accompanied Patient To Recovery: Yes Disposition: Recovery Room Indications This 70-year-old white female was admitted to the hospital for a left hip fracture. She elected to proceed with surgical intervention after being educated about potential risks and outcomes. Preoperative imaging was obtained. Cause of injury was a trip and fall. Description of Procedure Patient was taken to the operating room where she was given general anesthesia. She was prepped and draped in the usual sterile fashion. Please see Dr. Dailey's operative report for specifics of the procedure. I was present for the entire case from initial patient positioning through final wound closure. Assistance was provided in patient positioning, tissue retraction, hemostasis, hardware placement, and final wound closure. Patient was taken to the recovery room in satisfactory condition. I attest to the content of the Intraoperative Record and any orders documented therein. Any exceptions are noted below.
[2020-10-06] MEDS: DOCUSATE SODIUM/SENNA 50/8.6MG TAB PO SCH (20:41)
[2020-10-06] MEDS: ASPIRIN 325 MG ECTAB PO SCH (20:41)
[2020-10-07 02:27] LABS: Hemoglobin 14.1 g/dL (12.0-16.0); Immature Granulocytes # (auto) 0.01 K/uL (0.00-0.02); Immature Granulocytes % (auto) 0.1 %; Lymphocytes # (auto) 1.23 K/uL (1.2-3.4); Lymphocytes % (auto) 14.8 %; Mean Corpuscular Hemoglobin 27.6 pg (25-34); Mean Corpuscular Hgb Conc 32.8 g/dL (32-36); Mean Corpuscular Volume 84.1 fL (80-100); Mean Platelet Volume 11.8 fL (7.4-10.4); Monocytes # (auto) 0.61 K/uL (0.11-0.59); Monocytes % (auto) 7.3 %; Neutrophils # (auto) 6.47 K/uL (1.4-6.5); Neutrophils % (auto) 77.8 %; Platelet Count 144 K/uL (130-400); RDW Coefficient of Variation 13.1 % (11.5-14.5); RDW Standard Deviation 39.5 fL (36.4-46.3); Red Blood Count 5.11 M/uL (4.2-5.4); White Blood Count 8.32 K/uL (4.8-10.8)
[2020-10-07 02:48] LABS: BUN Creatinine Ratio 19.2 (10-20); Calcium 8.6 mg/dl (8.5-10.1); Creatinine Clr Calc Pharmacy 88.7 ml/min; Est GFR (African American) 109.2; Est GFR (Non-African American) 94.2; Potassium 3.9 mmol/L (3.5-5.1)
[2020-10-07] MEDS ORDERED: ceFAZolin 1000MG 1,000 MG/7.5 ML SYR IV ONE (05:00)
--- NOTE | 2020-10-07 08:19 | Hospitalist Progress Note ---
Date of Service October 07, 2020 Assessment & Plan (1) Closed fracture of left hip: * Mechanical fall * Xray with Acute nondisplaced transcervical fracture of the left femur. * Orthopedics consulted -- Dr. Dailey * POD#1 s/p closed reduction and percutaneous pinning of the left hip fracture. EBL 15cc * Added PO Oxycodone for pain relief as patient previously only ordered IV dilaudid * PT/OT -- plans for d/c with home health -- CM assisting. Will also need walker/hospital bed * DVT proph per surgery -- ASA 81mg BID * CBC with h/h stable at 14.1/43. (2) Fall: Mechanical (3) PVC (premature ventricular contraction): Patient reports history of arrhythmia though she does not know what type. She was told by her doctor she did not need to take medicine for it and that it was not a problem. On the monitor in the ED she did have intermittent PVCs. She is not having any symptoms (4) Hypokalemia: replaced -- K 3.9 (5) DVT prophylaxis: SCDs ASA 81mg BID Dispo: likely discharge tomorrow Will need follow up with [facility] in 2 weeks Admission and Anticipated Discharge Date Admission Date: October 05, 2020 Subjective Patient evaluated this morning. Worked with therapy but does admit pain present to her left hip with ambulation. PO pain medications have been successful as she had previously been ordered IV medication alone. Plans on home health but needing assistance getting hospital bed and walker as well as insurance questions to be addressed by CM. Eating/drinking without difficulty. No fever,chills, chest pain, shortness of breath, nausea, vomiting or diarrhea at this time. From [place] but unable to travel home at this time and plans on being discharged to her son's home. Review of Systems Review of Systems: All systems reviewed & are unremarkable except as noted in HPI & below Physical Exam Constitutional: well developed, well nourished and comfortable; no acute distress Eyes: + anicteric sclerae and PERRL ENMT: Ears: no hearing impairment Mouth: oral opening not small Mallampati Class: II Neck: normal visual inspection; neck extension not limited Respiratory: normal respiratory effort Auscultation: lungs clear to auscultation bilaterally Cardiovascular: Rate/Rhythm: regular rate and regular rhythm Heart Sounds: no murmur Gastrointestinal (Abdomen): normal bowel sounds, soft, nontender, no hepatosplenomegaly Musculoskeletal: Dressing to LEFT hip c/d/i tender to palpation lateral thigh calves non-tender to palpation 2+ pulses bilaterally Strength 2/5 RLE to quads, dorsiflexion/plantarflexion 5/5 b/l Skin: warm ,dry Neurologic: moves all extremities Psychiatric: Orientation: alert and oriented x 3 Lymphatic: no cervical or axillary lymphadenopathy Results & Data Results & Data ([facility]) Vital Signs (Past 12 Hours) Vital Signs Temp Pulse Resp BP Pulse Ox 10/07/20 07:09 37.1 C 82 16 101/61 96 10/07/20 03:16 36.9 C 85 18 129/73 96 10/06/20 22:13 37 C 90 16 127/67 96 Laboratory Results 10/07/20 10/07/20 10/06/20 Range/Units 02:11 02:11 09:25 WBC 8.32 (4.8-10.8) K/uL RBC 5.11 (4.2-5.4) M/uL Hgb 14.1 (12.0-16.0) g/dL Hct 43.0 (37-47) % MCV 84.1 (80-100) fL MCH 27.6 (25-34) pg MCHC 32.8 (32-36) g/dL RDW Std Deviation 39.5 (36.4-46.3) fL RDW Coeff of Magali 13.1 (11.5-14.5) % Plt Count 144 (130-400) K/uL MPV 11.8 H (7.4-10.4) fL Immature Gran % (Auto) 0.1 % Neut % (Auto) 77.8 % Lymph % (Auto) 14.8 % [place] % (Auto) 7.3 % Eos % (Auto) 0.0 % Baso % (Auto) 0.0 % Neut # (Auto) 6.47 (1.4-6.5) K/uL Lymph # (Auto) 1.23 (1.2-3.4) K/uL [place] # (Auto) 0.61 H (0.11-0.59) K/uL Eos # (Auto) 0.00 (0-0.5) K/uL Baso # (Auto) 0.00 (0-0.2) K/uL Immature Gran # (Auto) 0.01 (0.00-0.02) K/uL Sodium 140 (136-145) mmol/L Potassium 3.9 (3.5-5.1) mmol/L Chloride 107 (98-107) mmol/L Carbon Dioxide 29 (21-32) mmol/L Anion Gap 4.0 (3-11) BUN 11 (7-18) mg/dl Creatinine 0.59 L (0.6-1.2) mg/dl Est Cr Clr Drug Dosing 88.7 ml/min Est GFR ( Amer) 109.2 Est GFR (Non-Af Amer) 94.2 BUN/Creatinine Ratio 19.2 (10-20) Glucose 115 H (70-99) mg/dl Calcium 8.6 (8.5-10.1) mg/dl COVID-19 Eval Order Hepatitis C Ab Screen (Neg) SARS-CoV-2, RNA, NAAT NEGATIVE (NEGATIVE) 10/06/20 10/06/20 Range/Units 09:25 05:34 WBC (4.8-10.8) K/uL RBC (4.2-5.4) M/uL Hgb (12.0-16.0) g/dL Hct (37-47) % MCV (80-100) fL MCH (25-34) pg MCHC (32-36) g/dL RDW Std Deviation (36.4-46.3) fL RDW Coeff of Magali (11.5-14.5) % Plt Count (130-400) K/uL MPV (7.4-10.4) fL Immature Gran % (Auto) % Neut % (Auto) % Lymph % (Auto) % [place] % (Auto) % Eos % (Auto) % Baso % (Auto) % Neut # (Auto) (1.4-6.5) K/uL Lymph # (Auto) (1.2-3.4) K/uL [place] # (Auto) (0.11-0.59) K/uL Eos # (Auto) (0-0.5) K/uL Baso # (Auto) (0-0.2) K/uL Immature Gran # (Auto) (0.00-0.02) K/uL Sodium (136-145) mmol/L Potassium (3.5-5.1) mmol/L Chloride (98-107) mmol/L Carbon Dioxide (21-32) mmol/L Anion Gap (3-11) BUN (7-18) mg/dl Creatinine (0.6-1.2) mg/dl Est Cr Clr Drug Dosing ml/min Est GFR ( Amer) Est GFR (Non-Af Amer) BUN/Creatinine Ratio (10-20) Glucose (70-99) mg/dl Calcium (8.5-10.1) mg/dl COVID-19 Eval [facility]atitis C Ab Screen Neg (Neg) SARS-CoV-2, RNA, NAAT (NEGATIVE) PG Care Time/CCT Total # of Minutes Spent Total Time Spent with Patient: Total time spent is greater than 50% in coordination of care (as documented) at patient's floor/unit and/or counseling patient: Coding Level of Care Code 83436 Subseq Hosp Care Lvl 2 Diagnoses Closed fracture of left hip S72.002A Encounter type: initial encounter Fall W19.XXXA Encounter type: initial encounter PVC (premature ventricular contraction) I49.3 Hypokalemia E87.6 DVT prophylaxis Z29.9 (1) Closed fracture of left hip Encounter type: initial encounter Qualified Code(s): S72.002A - Fracture of unspecified part of neck of left femur, initial encounter for closed fracture (2) Fall Encounter type: initial encounter Qualified Code(s): W19.XXXA - Unspecified fall, initial encounter
[2020-10-07] MEDS: ASPIRIN 325 MG ECTAB PO SCH ×2 (09:09→20:02)
[2020-10-07] MEDS: oxyCODONE HCL IR 5 MG TAB (IMMEDIATE RELEASE) PO PRN (09:12)
--- NOTE | 2020-10-07 10:23 | Orthopedic Progress Note ---
Date of Service October 07, 2020 Assessment & Plan (1) Status post-operative repair of hip fracture: 25% WB on Left LE with walker assistance PT/OT DVT prophy with TEDs and Aspirin Ice with EZ wrap Pain control with PO meds Plan on discharge tomorrow per medicine service Case Management for in home PT follow discharge Follow up at [facility] in 2 weeks With questions call . Admission and Anticipated Discharge Date Admission Date: October 05, 2020 Subjective This 70 yo F is day 1 s/p closed reduction percutaneous pinning of a left hip fracture. Currently she is sitting in her bedside chair watching television. She states that her pain is well controlled with the PO pain medication. She has been ambulatory with a walker and assistance. She is very apprehensive about moving the left LE. She denies CP, SOB, nausea, vomiting, fever, chills, sweats, fatigue or lethargy. Review of Systems Review of Systems: All systems reviewed & are unremarkable except as noted in Subjective Physical Exam Physical Exam: Left Hip: Dressing are clean dry and intact. Patient has tenderness to palpation over entire lateral thigh. She is unable to actively perform a SLRT but has no pain with passive straightening of her LE. Very light passive internal and external hip rotation causes no pain. Calf is soft and supple. She is able to actively dorsi/plantar flex her foot. NV intact. Periph pulses 2+. Cap refill < 2 seconds. Quad strength 2/5. Results & Data ([facility]) Vital Signs (Past 12 Hours) Vital Signs Temp Pulse Resp BP Pulse Ox 10/07/20 07:09 37.1 C 82 16 101/61 96 10/07/20 03:16 36.9 C 85 18 129/73 96 Laboratory Results 10/07/20 10/07/20 Range/Units 02:11 02:11 WBC 8.32 (4.8-10.8) K/uL RBC 5.11 (4.2-5.4) M/uL Hgb 14.1 (12.0-16.0) g/dL Hct 43.0 (37-47) % MCV 84.1 (80-100) fL MCH 27.6 (25-34) pg MCHC 32.8 (32-36) g/dL RDW Std Deviation 39.5 (36.4-46.3) fL RDW Coeff of Magali 13.1 (11.5-14.5) % Plt Count 144 (130-400) K/uL MPV 11.8 H (7.4-10.4) fL Immature Gran % (Auto) 0.1 % Neut % (Auto) 77.8 % Lymph % (Auto) 14.8 % [place] % (Auto) 7.3 % Eos % (Auto) 0.0 % Baso % (Auto) 0.0 % Neut # (Auto) 6.47 (1.4-6.5) K/uL Lymph # (Auto) 1.23 (1.2-3.4) K/uL [place] # (Auto) 0.61 H (0.11-0.59) K/uL Eos # (Auto) 0.00 (0-0.5) K/uL Baso # (Auto) 0.00 (0-0.2) K/uL Immature Gran # (Auto) 0.01 (0.00-0.02) K/uL Sodium 140 (136-145) mmol/L Potassium 3.9 (3.5-5.1) mmol/L Chloride 107 (98-107) mmol/L Carbon Dioxide 29 (21-32) mmol/L Anion Gap 4.0 (3-11) BUN 11 (7-18) mg/dl Creatinine 0.59 L (0.6-1.2) mg/dl Est Cr Clr Drug Dosing 88.7 ml/min Est GFR ( Amer) 109.2 Est GFR (Non-Af Amer) 94.2 BUN/Creatinine Ratio 19.2 (10-20) Glucose 115 H (70-99) mg/dl Calcium 8.6 (8.5-10.1) mg/dl
[2020-10-07] MEDS: POLYETHYLENE (MIRALAX) 17 GM PACK PO SCH (17:55)
[2020-10-07] MEDS: DOCUSATE SODIUM/SENNA 50/8.6MG TAB PO SCH (20:03)
[2020-10-08] MEDS: oxyCODONE HCL IR 5 MG TAB (IMMEDIATE RELEASE) PO PRN ×3 (03:29→14:31)
[2020-10-08 06:16] LABS: Hematocrit (blood only) 39.5 % (37-47); Hemoglobin 13.1 g/dL (12.0-16.0); Mean Corpuscular Hemoglobin 28.1 pg (25-34); Mean Corpuscular Hgb Conc 33.2 g/dL (32-36); Mean Corpuscular Volume 84.6 fL (80-100); Mean Platelet Volume 11.9 fL (7.4-10.4); Platelet Count 133 K/uL (130-400); RDW Coefficient of Variation 13.3 % (11.5-14.5); RDW Standard Deviation 40.7 fL (36.4-46.3); Red Blood Count 4.67 M/uL (4.2-5.4); White Blood Count 7.55 K/uL (4.8-10.8)
[2020-10-08 06:40] LABS: Calcium 8.3 mg/dl (8.5-10.1); Creatinine Clr Calc Pharmacy 100.7 ml/min; Est GFR (African American) 113.8; Est GFR (Non-African American) 98.2; Potassium 3.7 mmol/L (3.5-5.1)
[2020-10-08] MEDS: ASPIRIN 325 MG ECTAB PO SCH ×2 (08:54→23:00)
[2020-10-08] MEDS: POLYETHYLENE (MIRALAX) 17 GM PACK PO SCH (08:54)
[2020-10-08] MEDS ORDERED: ERGOCALCIFEROL 50,000 UNITS 1250 MCG CAP PO SCH (09:00)
--- NOTE | 2020-10-08 09:52 | Hospitalist Progress Note ---
Date of Service October 08, 2020 Assessment & Plan (1) Closed fracture of left hip: * Mechanical fall * Xray with Acute nondisplaced transcervical fracture of the left femur. * Orthopedics consulted -- Dr. Dailey * POD#2 s/p closed reduction and percutaneous pinning of the left hip fracture. EBL 15cc * Added PO Oxycodone for pain relief as patient previously only ordered IV dilaudid -- agreed to take today after being apprehensive * PT/OT -- plans for d/c with home health -- CM assisting. Will also need walker/hospital bed/raised toilet to ensure safety at discharge. Son arranging with help of CM * DVT proph per surgery -- ASA 325mg BID * CBC with h/h stable * Vitamin D level low at 27 -- ordered ergocalciferol 50,000 and discussed continuing weekly * Added suppository for BM --small noted but has utilized suppository in [place] and requested one ordered * Additional 500cc NSS @ 80cc/hr for BUN/cr 29 (2) Fall: * Mechanical (3) PVC (premature ventricular contraction): * Patient reports history of arrhythmia though she does not know what type. She was told by her doctor she did not need to take medicine for it and that it was not a problem. On the monitor in the ED she did have intermittent PVCs. She is not having any symptoms (4) Hypokalemia: * replaced * K remains stable (5) DVT prophylaxis: * SCDs * ASA BID as above Dispo: likely discharge tomorrow as CM not heard back from Home Health yet and son making arrangements for medical equipment Will need follow up with [facility] in 2 weeks Admission and Anticipated Discharge Date Admission Date: October 05, 2020 Subjective Patient evaluated this morning. Doing well. Did have some pain today and actually agreed to take a pain pill. Discussed utilizing for breakthrough pain in this acute period and that she can take just when needed but that it is appropriate given current fracture/repair for now. She agrees. Discussed continued anticoagulation/DVT prophylaxis with aspirin -- she would like to have this written down as she is forgetful. Discussed low vitamin D level and continued supplementation 50,000 weekly for a month and to continue OTC 1,000mg daily thereafter to help with bone health/prevent further fractures. Worked with therapy. Talked with CM -- per patient, son busy until 15:00 but is arranging for hospital bed/toilet seat/walker for safe discharge with home health. CM waiting to hear back from home health so discharge may not be able to happen until tomorrow. She has been eating/drinking without difficulty and only had 1 small BM. She states at home she has taken a suppository and is able to administer herself if we would please order. No abdominal pain at this time. No fever, chills, chest pain, shortness of breath, nausea, vomiting or dysuria noted. Plans for discharge home with home health once everything arranged. Review of Systems Review of Systems: All systems reviewed & are unremarkable except as noted in HPI & below Physical Exam Constitutional: well developed, well nourished and comfortable; no acute distress Eyes: + anicteric sclerae and PERRL ENMT: Ears: no hearing impairment Mouth: oral opening not small Mallampati Class: II dry mm Neck: normal visual inspection; neck extension not limited Respiratory: normal respiratory effort Auscultation: lungs clear to auscultation bilaterally Cardiovascular: Rate/Rhythm: regular rate and regular rhythm Heart Sounds: no murmur Gastrointestinal (Abdomen): normal bowel sounds, soft, nontender, no hepatosplenomegaly Musculoskeletal: LEFT hip -- dressing c/d/i minimal ecchymosis hip/thigh pain with log roll in her groin calves-nontender to palpation NVI 2+ PT, DP pulses Skin: warm, dry Neurologic: moves all extremities Psychiatric: Orientation: alert and oriented x 3 Lymphatic: no cervical or axillary lymphadenopathy Results & Data Results & Data ([facility]) Vital Signs (Past 12 Hours) Vital Signs Temp Pulse Resp BP Pulse Ox 10/08/20 07:02 37.3 C 83 18 122/64 95 10/07/20 22:43 37.8 C H 87 16 119/59 L 96 Laboratory Results 10/08/20 10/08/20 10/08/20 Range/Units 05:35 05:35 05:35 WBC 7.55 (4.8-10.8) K/uL RBC 4.67 (4.2-5.4) M/uL Hgb 13.1 (12.0-16.0) g/dL Hct 39.5 (37-47) % MCV 84.6 (80-100) fL MCH 28.1 (25-34) pg MCHC 33.2 (32-36) g/dL RDW Std Deviation 40.7 (36.4-46.3) fL RDW Coeff of Magali 13.3 (11.5-14.5) % Plt Count 133 (130-400) K/uL MPV 11.9 H (7.4-10.4) fL Sodium 139 (136-145) mmol/L Potassium 3.7 (3.5-5.1) mmol/L Chloride 107 (98-107) mmol/L Carbon Dioxide 30 (21-32) mmol/L Anion Gap 2.0 L (3-11) BUN 15 (7-18) mg/dl Creatinine 0.52 L (0.6-1.2) mg/dl Est Cr Clr Drug Dosing 100.7 ml/min Est GFR ( Amer) 113.8 Est GFR (Non-Af Amer) 98.2 BUN/Creatinine Ratio 29.0 H (10-20) Glucose 114 H (70-99) mg/dl Calcium 8.3 L (8.5-10.1) mg/dl 25-OH Vitamin D Total 27.0 L (30-100) ng/ml SARS-CoV-2 Ag (Rapid) 10/05/20 Range/Units 17:12 WBC (4.8-10.8) K/uL RBC (4.2-5.4) M/uL Hgb (12.0-16.0) g/dL Hct (37-47) % MCV (80-100) fL MCH (25-34) pg MCHC (32-36) g/dL RDW Std Deviation (36.4-46.3) fL RDW Coeff of Magali (11.5-14.5) % Plt Count (130-400) K/uL MPV (7.4-10.4) fL Sodium (136-145) mmol/L Potassium (3.5-5.1) mmol/L Chloride (98-107) mmol/L Carbon Dioxide (21-32) mmol/L Anion Gap (3-11) BUN (7-18) mg/dl Creatinine (0.6-1.2) mg/dl Est Cr Clr Drug Dosing ml/min Est GFR ( Amer) Est GFR (Non-Af Amer) BUN/Creatinine Ratio (10-20) Glucose (70-99) mg/dl Calcium (8.5-10.1) mg/dl 25-OH Vitamin D Total (30-100) ng/ml SARS-CoV-2 Ag (Rapid) Cancelled PG Care Time/CCT Total # of Minutes Spent Total Time Spent with Patient: Total time spent is greater than 50% in coordination of care (as documented) at patient's floor/unit and/or counseling patient: Coding Level of Care Code 53220 Subseq Hosp Care Lvl 2 Diagnoses Closed fracture of left hip S72.002A Encounter type: initial encounter Fall W19.XXXA Encounter type: initial encounter PVC (premature ventricular contraction) I49.3 Hypokalemia E87.6 DVT prophylaxis Z29.9 (1) Closed fracture of left hip Encounter type: initial encounter Qualified Code(s): S72.002A - Fracture of unspecified part of neck of left femur, initial encounter for closed fracture (2) Fall Encounter type: initial encounter Qualified Code(s): W19.XXXA - Unspecified fall, initial encounter
--- NOTE | 2020-10-08 11:31 | Orthopedic Progress Note ---
Date of Service October 08, 2020 Assessment & Plan (1) Status post-operative repair of hip fracture: POD 2 S/P ORIF left hip fracture 25% WB on Left LE with walker assistance PT/OT DVT prophy with foot pumps, TEDS x 3wks, and Aspirin 325mg BID x 6wks Ice with EZ wrap Pain control with PO meds Plan on discharge later today per medicine service Case Management for in home PT follow discharge Follow up at [facility] in 2 weeks, info placed in DC instructions. With questions call . I, Dr. Dailey, saw and examined the patient and discussed the management with my PA. I reviewed my PAs note and agree with the documented findings and the plan of care I developed. Admission and Anticipated Discharge Date Admission Date: October 05, 2020 Subjective Patient seen this AM by Dr Dailey. Tolerating PO fluids and diet. Has left groin pain that is improved with pain medication, relying more so on PO medication at this point. Physical Therapy has yet to see patient today. Says they are working on steps. Plans on DC to sons home with home health. Hopes to go home today if medicine agrees. No fever,chills, chest pain, shortness of breath, nausea, vomiting or diarrhea at this time. Physical Exam Physical Exam: Left hip incision dressing with tegaderm is C/D/I. Minimal bruising noted to left hip/thigh. Does have some groin pain with log rolling. No pain with left knee motion. Able to wiggle ankle and toes. NV intact to B LE with palpable DP and PT pulses. Sensation intact to light touch. calves are soft, neg homans. Results & Data ([facility]) Vital Signs (Past 12 Hours) Vital Signs Temp Pulse Resp BP Pulse Ox 10/08/20 07:02 37.3 C 83 18 122/64 95 Laboratory Results 10/08/20 10/08/20 10/08/20 Range/Units 05:35 05:35 05:35 WBC 7.55 (4.8-10.8) K/uL RBC 4.67 (4.2-5.4) M/uL Hgb 13.1 (12.0-16.0) g/dL Hct 39.5 (37-47) % MCV 84.6 (80-100) fL MCH 28.1 (25-34) pg MCHC 33.2 (32-36) g/dL RDW Std Deviation 40.7 (36.4-46.3) fL RDW Coeff of Magali 13.3 (11.5-14.5) % Plt Count 133 (130-400) K/uL MPV 11.9 H (7.4-10.4) fL Sodium 139 (136-145) mmol/L Potassium 3.7 (3.5-5.1) mmol/L Chloride 107 (98-107) mmol/L Carbon Dioxide 30 (21-32) mmol/L Anion Gap 2.0 L (3-11) BUN 15 (7-18) mg/dl Creatinine 0.52 L (0.6-1.2) mg/dl Est Cr Clr Drug Dosing 100.7 ml/min Est GFR ( Amer) 113.8 Est GFR (Non-Af Amer) 98.2 BUN/Creatinine Ratio 29.0 H (10-20) Glucose 114 H (70-99) mg/dl Calcium 8.3 L (8.5-10.1) mg/dl 25-OH Vitamin D Total 27.0 L (30-100) ng/ml
[2020-10-08] MEDS ORDERED: bisacodyL 10 MG SUPP PR STA (13:20)
[2020-10-08] MEDS ORDERED: SODIUM CHLORIDE 0.9% 500 ML IV ONE (14:30)
[2020-10-08] MEDS: DOCUSATE SODIUM/SENNA 50/8.6MG TAB PO SCH (23:00)
[2020-10-09 06:38] LABS: BUN Creatinine Ratio 26.7 (10-20); Calcium 8.5 mg/dl (8.5-10.1); Creatinine Clr Calc Pharmacy 98.8 ml/min; Est GFR (African American) 113.1; Est GFR (Non-African American) 97.6; Potassium 3.9 mmol/L (3.5-5.1)
[2020-10-09 07:14] LABS: Basophils # (auto) 0.01 K/uL (0-0.2); Basophils % (auto) 0.2 %; Eosinophils # (auto) 0.09 K/uL (0-0.5); Eosinophils % (auto) 1.4 %; Hematocrit (blood only) 39.4 % (37-47); Hemoglobin 12.8 g/dL (12.0-16.0); Lymphocytes # (auto) 2.17 K/uL (1.2-3.4); Mean Corpuscular Hemoglobin 27.6 pg (25-34); Mean Corpuscular Hgb Conc 32.5 g/dL (32-36); Mean Corpuscular Volume 85.1 fL (80-100); Mean Platelet Volume 11.5 fL (7.4-10.4); Monocytes # (auto) 0.57 K/uL (0.11-0.59); Monocytes % (auto) 8.7 %; Neutrophils # (auto) 3.73 K/uL (1.4-6.5); Neutrophils % (auto) 56.7 %; Platelet Count 140 K/uL (130-400); RDW Coefficient of Variation 13.1 % (11.5-14.5); RDW Standard Deviation 40.5 fL (36.4-46.3); Red Blood Count 4.63 M/uL (4.2-5.4); White Blood Count 6.57 K/uL (4.8-10.8)
[2020-10-09] MEDS ORDERED: bisacodyL 5 MG TABEC PO ONE (08:06)
[2020-10-09] MEDS: ASPIRIN 325 MG ECTAB PO SCH (08:31)
[2020-10-09] MEDS: POLYETHYLENE (MIRALAX) 17 GM PACK PO SCH (08:32)
--- NOTE | 2020-10-09 09:45 | Orthopedic Progress Note ---
Date of Service October 09, 2020 Assessment & Plan (1) Status post-operative repair of hip fracture: POD 3 S/P ORIF left hip fracture 25% WB on Left LE with walker assistance PT/OT DVT prophy with foot pumps, TEDS x 3wks, and Aspirin 325mg BID x 6wks Ice with EZ wrap Pain control with PO meds Plan on discharge later today per medicine service, once HH arranged. Case Management for in home PT follow discharge Follow up at [facility] in 2 weeks, info placed in DC instructions. With questions call . Admission and Anticipated Discharge Date Admission Date: October 05, 2020 Subjective Patient resting in bed, states that she's feeling a lot better today. States doing better out of bed, and she's ready to go home. Physical Exam Physical Exam: Exam of left leg, no distal edema, pulses 1+ left foot. Full ankle ROM left ankle/foot. No calf tenderness, calves supple. Able to actively bend her left knee about 30 degrees, unable to SLR LLE due to pain. No pain with log rolling of left hip. Dressings dry and intact left hip. No surroundi ng ecchymosis, hematoma or seroma. No active drainage. Results & Data ([facility]) Vital Signs (Past 12 Hours) Vital Signs Temp Pulse Resp BP BP Pulse Ox 10/09/20 07:52 37.3 C 87 18 139/77 96 10/08/20 22:57 37.7 C H 90 16 132/77 96 Laboratory Results 10/09/20 10/09/20 Range/Units 05:50 05:50 WBC 6.57 (4.8-10.8) K/uL RBC 4.63 (4.2-5.4) M/uL Hgb 12.8 (12.0-16.0) g/dL Hct 39.4 (37-47) % MCV 85.1 (80-100) fL MCH 27.6 (25-34) pg MCHC 32.5 (32-36) g/dL RDW Std Deviation 40.5 (36.4-46.3) fL RDW Coeff of Magali 13.1 (11.5-14.5) % Plt Count 140 (130-400) K/uL MPV 11.5 H (7.4-10.4) fL Immature Gran % (Auto) 0.0 % Neut % (Auto) 56.7 % Lymph % (Auto) 33.0 % [place] % (Auto) 8.7 % Eos % (Auto) 1.4 % Baso % (Auto) 0.2 % Neut # (Auto) 3.73 (1.4-6.5) K/uL Lymph # (Auto) 2.17 (1.2-3.4) K/uL [place] # (Auto) 0.57 (0.11-0.59) K/uL Eos # (Auto) 0.09 (0-0.5) K/uL Baso # (Auto) 0.01 (0-0.2) K/uL Immature Gran # (Auto) 0.00 (0.00-0.02) K/uL Sodium 141 (136-145) mmol/L Potassium 3.9 (3.5-5.1) mmol/L Chloride 108 H (98-107) mmol/L Carbon Dioxide 29 (21-32) mmol/L Anion Gap 4.0 (3-11) BUN 14 (7-18) mg/dl Creatinine 0.53 L (0.6-1.2) mg/dl Est Cr Clr Drug Dosing 98.8 ml/min Est GFR ( Amer) 113.1 Est GFR (Non-Af Amer) 97.6 BUN/Creatinine Ratio 26.7 H (10-20) Glucose 94 (70-99) mg/dl Calcium 8.5 (8.5-10.1) mg/dl
--- NOTE | 2020-10-09 11:49 | Discharge Summary ---
Date of Service October 09, 2020 Admission HPI Per Admitting Provider Ms. Bhagat presents today with a hip fracture after tripping on the sidewalk while accompanied with her son. She has been visiting from [place] since March and has been unable to travel home due to COVID restrictions. She did not hit her head when she fell or lose consciousness. Her pain is well controlled at present and she only required 2 mg of morphine in the ED. 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 Admission Exam Per Admitting Provider General: no distress Eyes: normal inspection, PERLL Respiratory: chest non tender, clear to auscultation, normal breath sounds, no respiratory distress, no accessory muscle use Cardiac: irregular rate and rhythm, no rub or gallop, no murmur, no edema, no jvd GI/: active bowel sounds, no abd pain or tenderness, soft, non distended Extremities: normal range of motion, normal strength, non tender Neuro:oriented x 3, moves all extremities except left leg due to fracture Psych: alert, normal mood and affect Skin: normal color, dry Principal Diagnosis LEFT HIP FRACTURE Discharge Exam Constitutional well developed, well nourished and comfortable; no acute distress Eyes + anicteric sclerae and PERRL ENMT Ears: no hearing impairment Mouth: oral opening not small Mallampati Class: II Neck normal visual inspection; neck extension not limited Respiratory normal respiratory effort Auscultation: lungs clear to auscultation bilaterally Cardiovascular Rate/Rhythm: regular rate and regular rhythm Heart Sounds: no murmur Gastrointestinal (Abdomen) normal bowel sounds, soft, nontender, no hepatosplenomegaly Musculoskeletal dressing to L hip c/d/i calves non-tender pulses palpable bilaterally cap refill <3 seconds NVI Skin warm, dry Neurologic moves all extremities Psychiatric Orientation: alert and oriented x 3 Lymphatic no cervical or axillary lymphadenopathy Discharge Data Allergies Allergy/AdvReac Type Severity Reaction Status Date / Time No Known Allergies Allergy Verified 10/05/20 17:18 Consultations 10/05/20 17:11 ED Decision to Admit Stat 10/05/20 20:15 Consult Anesthesiology Routine Consult Case Management - Discharge Planning Routine Consult Case Management - Discharge Planning Routine Consult Orthopedic Surgery Routine Procedures Performed Operation Date: 10/06/20 11:00 Actual Procedures p Closed Reduction and Percutaneous Pinning of Left Hip Fracture(Left) - Reyes Lisa Dailey MD Ordered Studies 10/05 CXR Hip/Pelvis Xray 10/06/20 FL fluoroscopy <1hr Routine FL hip LT 2-3V Routine Hospital Course (1) Closed fracture of left hip: * Mechanical fall * Xray with Acute nondisplaced transcervical fracture of the left femur. * Orthopedics consulted -- Dr. Dailey * POD#3 s/p closed reduction and percutaneous pinning of the left hip fracture. EBL 15cc * Pain control -- prescription sent at discharge * PT/OT --d/c with home health * DVT proph per surgery -- ASA 325mg BID * Blood counts stable * Vitamin D level low at 27 -- ordered ergocalciferol 50,000 and discussed continuing weekly * Will need follow up with orthopedics in 2 weeks * Given prescription for hospital bed, walker, raised toilet seat and over bed tray for safety at discharge with home health, to start 10/10 [facility] Home Health. * Equipment arranged through [facility] (2) Fall: * Mechanical (3) PVC (premature ventricular contraction): * Patient reports history of arrhythmia though she does not know what type. She was told by her doctor she did not need to take medicine for it and that it was not a problem. On the monitor in the ED she did have intermittent PVCs. * No symptoms (4) Hypokalemia: * replaced * K remained stable (5) DVT prophylaxis: * SCDs * ASA BID Discharge home with home health services. Will need follow up with [facility] in 2 weeks Total Time Total Time Spent Total Time Spent (In Minutes): 60 Discharge Plan Discharge Items Patient Disposition: Home - Home Health Services Reason For Visit: HIP FRACTURE Discharge Diagnosis: Left Hip Fracture Goals: You have been hospitalized for an urgent problem which required surgery. During your stay at [facility], we have made an effort to correct the problem that brought you to the hospital while keeping you as comfortable as possible. Surgery and medications were used to bring your condition under control and your discharge instructions will include directions for any medications you should take after leaving the hospital. Please make sure to follow the advice of your surgeon regarding follow up with the surgeon and with your primary care provider. Activity: As commented below Activity Comment: as tolerated with home health Non-emergency contact: Primary Care Provider Call non-emergency contact if: you have any medication questions, your symptoms worsen, your pain is concerning for you and you have a fever Follow-up/Referrals: Reyes Dailey MD [Physician] - 10/21/20 2:30 pm (with Kirti Fournier PA-C ) PCP,NO [Primary Care Provider] - Diet: Regular Addtl Attending Provider Instructions: You have been hospitalized and found to have a LEFT hip fracture. Orthopedics was consulted and you underwent a repair with Dr. Dailey and will need to continue ASPIRIN 325mg by mouth TWICE daily to prevent blood clots post- operatively for 6 weeks along with stockings. Your vitamin D level was also checked given the fracture and this was found to be significantly low and puts you at risk for repeat fractures in the future and you have been started on replacement. This can be taken as follows: * Ergocalciferol 50,000 units by mouth ONCE WEEKLY and you can continue with over the counter daily supplements after that or have repeat labs at that point to determine if you will need continued supplementation. You will need to follow up with their office October 21 at 2:30. You have been sent a short prescription of pain medication to use as needed for breakthrough pain, and may use Tylenol for all other non-severe pain. Please note not to exceed 3,000mg in a 24 hour period of time. You have been set up with home health for therapy and your son has arranged for a hospital bed and raised toilet seat. You are also being set up with a walker, and overbed table. Please follow up with a primary care provider to monitor your progress. Please return to the emergency department for any worsening pain, fever, or for any other symptoms that are concerning for you. It has been a pleasure being a part of the medical team providing for you while you have been in the hospital. Take care! Tasha bourgeois Tag! Addtl Feed Grinder Provider Instructions: Orthopedics: *25% weightbearing left leg with walker or crutches *Keep dressings on/clean/dry--may shower but not submerge, change as needed *Ice to left hip at least 3xs a day for 10-20minutes *Aspirin 325mg twice daily for 6wks and knee high TEDS until seen in office for prevention of blood clots *Pain medicine per the medical doctor *Follow-up with Dr Flores office (Kirti Fournier PA-C) on 10-21-20 at 2:30. Please call the office with any questions or concerns or to change the appointment at [phone]. Pending Studies at Discharge: No Stand-Alone Forms: My [facility] [employer], Smoking Cessation Medications and DC Order Prescriptions: New aspirin [Ecotrin] 325 mg Tablet,Delayed Release (Dr/Ec) 325 mg PO BID 45 Days Qty: 45 RF: 0 ergocalciferol (vitamin D2) 1,250 mcg (50,000 unit) Capsule 50,000 unit PO Tu@0900 30 Days Qty: 4 RF: 0 oxycodone 5 mg Tablet 5 mg PO Q6H PRN (Reason: pain) Qty: 12 RF: 0 No Action No Known Home Medications RF: 0 Discharge Orders: Discharge Order (Routine); Ordered 10/09/20 Ordered By: Kellie Fuentes Admission Data Admit Date/Time: 10/05/20 18:43 Attending Provider: Gurpreet Corrigan Admit Provider: Jaylen Aj Primary Care Provider: PCP,NO Other Providers: Jaylen Aj ; Caprice Romo ; Reyes Dailey ; [facility] Coding Level of Care Code D/C Day Management >30 mins Diagnoses Closed fracture of left hip S72.002A Encounter type: initial encounter Fall W19.XXXA Encounter type: initial encounter PVC (premature ventricular contraction) I49.3 Hypokalemia E87.6 DVT prophylaxis Z29.9
== END 2020-10-09 17:21 | disposition home health service (06) | DRG 482 ==
LOC: ED 15:24 → 3E 18:43 → SUATTDRO 18:43 → 3E 19:57